=== PATIENT | male | born 1985 | race Caucasian/White ===

== ENCOUNTER 2022-01-16 14:39 | Emergency (ER) | payer BC, SELFPAY ==
[2022-01-16 14:54] VITALS: BP 153/96; PULSE 107; RESP 16; TEMP 37.3; O2SAT 99
--- NOTE | 2022-01-16 14:57 | ED.URI ---
HPI - URI/Sore Throat General Chief Complaint: Upper Respiratory Infection Stated Complaint: Coughing, Fever Time Seen by Provider: 01/16/22 14:57 Source: patient and RN notes reviewed Mode of arrival: ambulatory Limitations: no limitations History of Present Illness HPI Narrative: 37-year-old male presented for complaint of cough, dizziness, nausea and sweats/chills for 3 days. He endorses a cough is productive of mucus sometimes. He has had 1 or 2 episodes of vomiting. Patient also endorses left lower rib pain for over 1 week. Yesterday he tested negative for COVID at home. He has been taking sinus and cough medications. No sick contacts. MD elicited complaint: cough Related Data Home Medications Medication Instructions Recorded Confirmed No Home Medications 01/16/22 01/16/22 Allergies Allergy/AdvReac Type Severity Reaction Status Date / Time No Known Allergies Allergy Verified 01/16/22 14:58 Review of Systems Review of Systems: CONSTITUTIONAL: Endorses malaise, chills, sweats, fever EYES: Denies visual changes, redness, or discharge ENT: Reports rhinorrhea, congestion, denies, otalgia, sore throat CARDIOVASCULAR: Denies chest pain, palpitations, edema RESPIRATORY: Reports cough, Denies dyspnea GASTROINTESTINAL: Denies abdominal pain, nausea, vomiting, diarrhea SKIN: Denies rash or itching MUSCULOSKELETAL: reports rib pain Exam Narrative: GENERAL: Ill-appearing, nontoxic EYES: conjunctivae clear ENT: Mucous membranes moist. TM pearly carrasco with dull light reflex bilaterally; no tragal tenderness. Oropharynx erythematous without lesions or exudate, no drooling, no hoarseness, no trismus, uvula midline. NECK: Supple. No lymphadenopathy CHEST: Clear to auscultation, breath sounds equal. HEART: Regular rate and rhythm. No murmur heard. SKIN: Warm, dry, no rash. MUSC: Left lower ribs tender with palpation; no bruising or lesions NEURO: Alert and oriented x3. PSYCH: Normal mood and affect Course Course Emergency Course: Patient is aware of diagnosis, understands and agrees to treatment plan. Anticipatory guidance given. Patient agrees to follow-up as directed and is aware of reasons to seek care at the emergency department. Portions of this record may have been created with voice recognition software Level of Care: Express Care Visit Vital Signs Vital signs: Vital Signs Temperature 99.2 F 01/16/22 14:54 Pulse Rate 107 H 01/16/22 14:54 Respiratory Rate 16 01/16/22 14:54 Blood Pressure 153/96 H 01/16/22 14:54 Pulse Oximetry 99 01/16/22 14:54 Oxygen Delivery Room Air 01/16/22 14:54 Temperature 99.2 F 01/16/22 14:54 Pulse Rate 107 H 01/16/22 14:54 Respiratory Rate 16 01/16/22 14:54 Blood Pressure 153/96 H 01/16/22 14:54 Pulse Oximetry 99 01/16/22 14:54 Oxygen Delivery Room Air 01/16/22 14:54 reviewed MDM - URI/Sore Throat MDM Narrative Medical decision making narrative: flu A positive Advised supportive measures and signs/symptoms to go to the ER. Pt is appropriate for outpt treatment and f/u. Differential Diagnosis Differential diagnosis: Likely upper respiratory infection, sinusitis and viral infection Discharge Plan Discharge Clinical Impression: Influenza, Rib pain on left side Patient Disposition: Home, Self-Care Condition: Stable Additional Instructions: Infulenza positive You should avoid crowds until you are fever free for 24 hours without the use of fever reducing medications, or the symptoms are improved Rest. Drink plenty of fluids. Tylenol 1000mg every 8 hours and Motrin 600mg every 8 hours as needed for pain/fever Zyrtec (or Claritin/Ling) for sinus pressure/congestion over the counter Cough syrup may cause drowsiness; avoid driving or take it at night time. Follow up with your primary care provider as needed in 1-2 weeks Go to the ER for worsening symptoms or concerns Prescriptions: No Action No Home Medication
== END 2022-01-16 16:30 | disposition home or self-care (01) ==
PROVIDERS: Emergency Provider Nurse Practitioner Family
DX: J10.1 Influenza due to other identified influenza virus with other respiratory manifestations (principal); R07.81 Pleurodynia; Z20.822 Contact with and (suspected) exposure to COVID-19
CPT/HCPCS: 87426; 87804; 99213; C9803; G0463

== ENCOUNTER 2022-03-25 00:48 | Emergency (ER) | payer BC, SELFPAY ==
[2022-03-25 00:55] VITALS: BP 138/85; PULSE 99; RESP 16; O2SAT 93
[2022-03-25 01:10] LABS: Basophils Absolute Auto 0.1 K/mm3 (0.0-0.1); Eosinophils Percent Auto 0.4 % (0-4.4); Hematocrit 43.5 % (42.0-52.0); Hemoglobin 14.9 g/dL (14.0-18.0); Immature Granulocyte Absolute 0.02 K/mm3 (0.00-0.031); Immature Granulocyte Percent A 0.3 % (0-0.5); Lymphocytes Absolute Auto 3.55 K/mm3 (0.9-3.2); Lymphocytes Percent Auto 51.2 % (18.3-44.2); Mean Corpuscular HGB Conc 34.3 g/dl (32-36); Mean Corpuscular Hemoglobin 29.3 pg (26-34); Mean Corpuscular Volume 85.6 fl (80-100); Mean Platelet Volume 9.8 fl (7.4-10.4); Monocytes Absolute Auto 0.6 K/mm3 (0.1-0.6); Monocytes Percent Auto 8.2 % (2.6-8.5); Neutrophils Absolute Auto 2.7 K/mm3 (1.3-6.7); Neutrophils Percent Auto 38.9 % (45.5-73.1); Platelet Count Result 332 k/mm3 (150-375); Red Blood Count 5.08 M/mm3 (4.6-6.20); Red Cell Distribution Width 12.7 % (11.5-14.5); White Blood Count 6.9 K/mm3 (4.5-10.0)
--- NOTE | 2022-03-25 01:20 | ED.PSYCH ---
HPI - Psych General Chief Complaint: Psychiatric Symptoms <JOE Rose Last Filed: 03/25/22 03:50> Stated Complaint: DEPRESSION, SI <JOE Rose Last Filed: 03/25/22 03:50> Time Seen by Provider: 03/25/22 00:51 <JOE Rose Last Filed: 03/25/22 03:50> Source: patient <JOE Rose Last Filed: 03/25/22 03:50> Mode of arrival: ambulatory <JOE Rose Last Filed: 03/25/22 03:50> Limitations: no limitations <JOE Rose Last Filed: 03/25/22 03:50> History of Present Illness HPI Narrative: Patient is a 37-year-old male who presents to the ED via EMS with report of depression and SI. Patient reports a history of self diagnosed depression. He has never been on medication for depression or anxiety. He states everything came to a head tonight and he felt like he could not take it anymore. He was texting his friends and apparently made suicidal gestures. By the time patient arrived home, police were waiting to bring him to the hospital. Patient reports a previous suicide attempt 8 to 9 months ago by hanging. He states he plan to either overdose, hang himself, or shoot himself tonight. He does have access to guns. He denies any HI or AVH. Denies any chest pain or difficulty breathing, fever, recent cough or cold symptoms. Patient admits to drinking 6-7 alcoholic mixed drinks tonight. Denies any drug use. <JOE Rose Last Filed: 03/25/22 03:50> Related Data Home Medications: Home Medications Medication Instructions Recorded Confirmed No Home Medications 01/16/22 01/16/22 <JOE Rose Last Filed: 03/25/22 03:50> Allergies/Adverse Reactions: Allergies Allergy/AdvReac Type Severity Reaction Status Date / Time No Known Allergies Allergy Verified 01/16/22 14:58 <Leta Wise PA-C - Last Filed: 03/25/22 03:50> Review of Systems Review of Systems: CONSTITUTIONAL: Denies fever, chills, or sweats. EYES: Denies visual changes. ENT: Denies rhinorrhea, congestion, sore throat. CARDIOVASCULAR: Denies chest pain, palpitations, or edema. RESPIRATORY: Denies cough or dyspnea. GASTROINTESTINAL: Denies abdominal pain, nausea, vomiting, or diarrhea. PSYCHIATRIC: Reports SI, depression. Denies HI, AVH. <Leta Wise PA-C - Last Filed: 03/25/22 03:50> All systems reviewed & are unremarkable except as noted in HPI and below <Leta Wise PA-C - Last Filed: 03/25/22 03:50> [facility] Past Medical History Medical History: Medical History (Updated 03/25/22 @ 03:50 by Leta Wise PA-C) No pertinent past medical history <Leta Wise PA-C - Last Filed: 03/25/22 03:50> Surgical History Surgical History: Surgical History (Updated 03/25/22 @ 01:24 by Leta Wise PA-C) History of neck surgery History of shoulder surgery <Leta Wise PA-C - Last Filed: 03/25/22 03:50> Social History Social History: Social History (Updated 03/25/22 @ 01:24 by Leta Wise PA-C) Smoking status: Never smoker Alcohol intake: current Substance use: never Substance use type: does not use <Leta Wise PA-C - Last Filed: 03/25/22 03:50> Exam Narrative: GENERAL: Well appearing, obese, non-toxic, in no acute distress. HEAD: Normocephalic, atraumatic. NECK: Supple. No adenopathy, no masses. RESPIRATORY: Airway patent, respirations nonlabored. Clear to auscultation bilaterally, no rales, rhonchi, wheezing. CARDIOVASCULAR: Regular rate and rhythm without murmurs, rubs, or gallops. Peripheral pulses 2+ and equal bilaterally. ABDOMINAL: Soft, nontender, nondistended, no hepatosplenomegaly. Normoactive BS. MUSCULOSKELETAL: Moves all extremities. Strength/ROM intact without gross deformities. SKIN: Warm, dry, normal color. No rashes. NEURO: A&O X3. Speech clear. Cranial n
[2022-03-25 01:23] LABS: Ethanol 179 mg/dL (<10)
[2022-03-25 01:24] LABS: Alanine Aminotransferase 38 U/L (6-50); Albumin Level 4.9 g/dL (3.5-5.1); Alkaline Phosphatase 77 U/L (38-126); Anion Gap 11 mmol/L (8-16); Aspartate Amino Transferase 40 U/L (17-59); Bilirubin,Total 0.3 mg/dL (0.2-1.3); Blood Urea Nitrogen 8 mg/dL (9-20); Calcium 8.7 mg/dL (8.4-10.2); Carbon Dioxide 24 mmol/L (22-30); Chloride 107 mmol/L (98-107); Estimated CRCL calculation 133 ml/min; Estimated Glomerular Filt Rate > 60; Glucose 132 mg/dL (65-110); Potassium 3.7 mmol/L (3.4-5.0); Sodium 142 mmol/L (137-145)
[2022-03-25 01:54] LABS: Thyroid Stimulating Hormone 0.605 uIU/mL (0.465-4.680)
[2022-03-25 01:55] VITALS: BP 118/72; PULSE 78; RESP 14; O2SAT 99
[2022-03-25 02:46] LABS: Add Urine Microscopic? NO; Appearance Urine Clear (Clear); Bilirubin Urine Negative (Negative); Blood Urine Negative (Negative); Color Urine Light Yellow (Yellow); Glucose Urine UA Negative (Negative); Ketones Urine Negative (Negative); Leukocyte Esterase Ur Negative LEU/UL (Negative); Nitrate Urine Negative (Negative); Protein Urine Negative (Negative); Specific Grav Ur 1.025 (1.001-1.035); Urobilinogen Urine 0.2 mg/dL (<2.0); pH Urine 5.5 (5.0-9.0)
[2022-03-25 02:51] LABS: Mucus Urine Rare /lpf; WBC Urine 0-3 /hpf
[2022-03-25 03:03] LABS: Amphetamine Screen Urine Negative (Negative); Barbiturate Screen Urine Negative (Negative); Benzodiazepines Screen Urine Negative (Negative); Cannabinoid Screen Urine Negative (Negative); Cocaine Screen Urine Negative (Negative); Methadone Screen Urine Negative (Negative); Opiate Screen Urine Negative (Negative); Phencyclidine Screen Urine Negative (Negative)
[2022-03-25 04:07] LABS: Acetaminophen < 10 ug/mL (10-30); Salicylate < 1.0 mg/dL (2-20)
[2022-03-25 04:42] LABS: Influenza A QL RT-PCR Negative (Negative); Influenza B QL RT-PCR Negative (Negative); SARS-CoV-2 RNA PCR Negative
[2022-03-25 06:00] LABS: Ethanol 84 mg/dL (<10)
--- NOTE | 2022-03-25 07:12 | PC.NURSE ---
Report given to RAS Guerra.
[2022-03-25 08:02] VITALS: BP 125/74; PULSE 64; RESP 18; O2SAT 96
--- NOTE | 2022-03-25 08:20 | PC.NURSE ---
Fern Odonnell ([facility]) called for patient update. Patient verbalized to this RN it was ok to share information.
== END 2022-03-25 09:11 | disposition home or self-care (01) ==
PROVIDERS: Physician Assistant; Emergency Provider Emergency Medicine
DX: F32.A Depression, unspecified (principal); R45.851 Suicidal ideations; Z20.822 Contact with and (suspected) exposure to COVID-19
CPT/HCPCS: 36415; 80053; 80307; 81003; 84443; 85025; 87636; 99284

== ENCOUNTER 2022-08-19 08:38 | Observation (INO) | payer BC, SELFPAY ==
--- NOTE | ~2022-08-19 | CT_ITS ---
EXAMINATION: CT abdomen pelvis wo con DATE: 08/19/2022 10:13 INDICATION: Left flank pain. TECHNIQUE: Computed tomography (CT) of the abdomen and pelvis was performed without intravenous contr ast. Automated exposure control and iterative reconstruction technique were employed. The dose-length product was 616.74 mGy-cm. COMPARISON: None. FINDINGS: The visualized portions of the lung bases demonstrate mild atelectasis. There is a 9 mm nod ule in right lower lobe. There are 3 mm and 4 mm nodules in right middle lobe. No pleural effusion. T he heart size is normal. No pericardial effusion. The liver, gallbladder, spleen, pancreas, adrenal g lands, and right kidney are normal. There are 3 stones in left kidney measuring up to 2 mm. There is mild left hydronephrosis. There is a 6 mm stone in proximal left ureter. There are no dilated loops o f bowel. The appendix is normal. There is an umbilical hernia containing fat. There are no pathologic ally enlarged lymph nodes. There is no free intraperitoneal fluid. There is mild lumbar spondylosis. IMPRESSION: 1. 6 mm stone in proximal left ureter with mild left hydronephrosis. 2. Small nonobstructing left kidney stones. 3. Umbilical hernia containing fat. 4. 9 mm pulmonary nodule, which may be granulomatous disease or primary bronchogenic carcinoma. Consi chelsey PET/CT or 3 month noncontrast low-dose chest CT. Reviewed, dictated and finalized at location A. IMPRESSION: 1. 6 mm stone in proximal left ureter with mild left hydronephrosis. 2. Small nonobstructing left kidney stones. 3. Umbilical hernia containing fat. 4. 9 mm pulmonary nodule, which may be granulomatous disease or primary broncho genic carcinoma. Consider PET/CT or 3 month noncontrast low-dose chest CT.
--- NOTE | ~2022-08-19 | XR_ITS ---
XR abdomen/kub 1V 08/20/2022 08:03 Indication: Left ureteral stent Procedure: KUB Comparison: CT dated 08/19/2022 Findings: There is a left ureteral stone at the L3 level. Bowel pattern nonobstructive. No acute osse ous abnormality. Impression: 1: Proximal left ureteral stone at the L3 level. Reviewed, dictated and finalized at location L. Impression: 1: Proximal left ureteral stone at the L3 level.
--- NOTE | ~2022-08-19 | XR_ITS ---
EXAMINATION: XR retrograde pyelo w/stent LT DATE: 08/20/2022 13:29 INDICATION: Left internal ureteral stent placement TECHNIQUE: Fluoroscopic images from a left internal ureteral stent placement are submitted for review . 14 seconds of fluoroscopy time. FINDINGS: There is a left double-J internal ureteral stent projecting in expected position, with proximal [place] loop at the level of the renal pelvis and distal loop in the pelvis within the bladder lumen. IMPRESSION: 1. Left internal ureteral stent placement. Please refer to real-time procedural findings for detail s. Reviewed, dictated and finalized at location L. IMPRESSION: 1. Left internal ureteral stent placement. Please refer to real-time procedur al findings for details.
[2022-08-19 08:41] VITALS: BP 134/91; PULSE 68; RESP 18; TEMP 37; O2SAT 99
[2022-08-19 08:56] LABS: Basophils Absolute Auto 0.1 K/mm3 (0.0-0.1); Basophils Percent Auto 0.9 % (0.2-1.2); Eosinophils Absolute Auto 0.3 K/mm3 (0-0.3); Hematocrit 43.8 % (42.0-52.0); Hemoglobin 14.6 g/dL (14.0-18.0); Immature Granulocyte Absolute 0.09 K/mm3 (0.00-0.031); Lymphocytes Absolute Auto 4.62 K/mm3 (0.9-3.2); Lymphocytes Percent Auto 49.5 % (18.3-44.2); Mean Corpuscular HGB Conc 33.3 g/dl (32-36); Mean Corpuscular Volume 86.9 fl (80-100); Monocytes Absolute Auto 1.4 K/mm3 (0.1-0.6); Neutrophils Absolute Auto 2.9 K/mm3 (1.3-6.7); Neutrophils Percent Auto 30.6 % (45.5-73.1); Platelet Count Result 320 k/mm3 (150-375); Red Blood Count 5.04 M/mm3 (4.6-6.20); Red Cell Distribution Width 13.1 % (11.5-14.5); White Blood Count 9.3 K/mm3 (4.5-10.0)
[2022-08-19] MEDS: HYDROmorphone HCL INJ (*CRX) 1 MG/ML SYR IV PUSH ×4 (09:00→21:33)
[2022-08-19] MEDS: ONDANSETRON INJ 4 MG/2 ML VIAL IV PUSH (09:00)
[2022-08-19 09:06] LABS: Alanine Aminotransferase 30 U/L (6-50); Albumin Level 4.2 g/dL (3.5-5.1); Alkaline Phosphatase 76 U/L (38-126); Anion Gap 10 mmol/L (8-16); Aspartate Amino Transferase 32 U/L (17-59); Bilirubin,Total 0.3 mg/dL (0.2-1.3); Blood Urea Nitrogen 12 mg/dL (9-20); Calcium 8.6 mg/dL (8.4-10.2); Carbon Dioxide 23 mmol/L (22-30); Chloride 110 mmol/L (98-107); Estimated CRCL calculation 133 ml/min; Estimated Glomerular Filt Rate > 60; Glucose 115 mg/dL (65-110); Potassium 4.2 mmol/L (3.4-5.0); Sodium 143 mmol/L (137-145)
--- NOTE | 2022-08-19 09:06 | ED.GENADULT ---
HPI - General Adult General Chief complaint: Back Pain/Injury Stated complaint: L flank pain Time Seen by Provider: 08/19/22 08:40 History of Present Illness HPI narrative: 37-year-old male presenting to the emergency department for evaluation of left flank pain that awoke him this morning. Patient states that the pain starts in his left flank radiates to his left lower quadrant and does radiate to his testicles. Patient denies any prior issues with his kidneys, urinary tract infections and denies any prior history of kidney stones. Patient did have some associated nausea and vomiting. Patient denies any falls or injuries. Patient denies any associated chest pain or shortness of breath. Patient denies any fevers. Related Data Home Medications Medication Instructions Recorded Confirmed No Home Medications 08/19/22 08/19/22 Allergies Allergy/AdvReac Type Severity Reaction Status Date / Time No Known Allergies Allergy Verified 08/19/22 09:46 Review of Systems Review of Systems: All systems reviewed & are unremarkable except as noted in HPI and below PMFSH Surgical History Surgical History H/O neck surgery H/O shoulder surgery Family History Family History Father Kidney stone Other Hypertension Social History Social History (Updated 08/19/22 @ 12:41 by Zofia Hernandez NP) Social History: the patient lives with his significant other. He has at least 1 daughter. He is a lifelong nonsmoker. Code status full code Smoking status: Never smoker Alcohol intake: current Drinks per week: 8 Substance use: never Lack of Transportation: No Lack of Food: Never True Current Housing: I Have Housing Concerned About Future Housing: No Difficulty Paying Gas/Electric Bills: No Difficulty Paying for Meds: No Currently Unemployed: No Education: Associate Degree Difficulty w/ Childcare or Family Care: No Spiritual care concerns: No Exam Narrative: APPEARANCE: Well appearing, no pain, no distress, well-nourished. HEAD: normocephalic, atraumatic. EYES: PERRLA/EOMI, conjunctivae clear. NOSE: Normal no drainage NECK: Supple. No adenopathy, no masses. RESPIRATORY: Airway patent, respirations nonlabored. Clear to auscultation bilaterally, no rales, rhonchi, wheezing. CARDIOVASCULAR: Regular rate and rhythm without murmurs rubs or gallops. ABDOMINAL: Soft, left CVA tenderness to palpation. Left lower quadrant tenderness to palpation MUSCULOSKELETAL: Moves all extremities. Strength/ROM intact, No edema, No calf tenderness. NEURO: Alert. Cranial nerves II through XII intact. Grossly intact SKIN: Warm, dry. Normal Color Course Course Emergency Course: 37-year-old male with left flank pain concerning for ureteral calculi. Patient was ordered IV Dilaudid and IV Zofran for pain and nausea control. Patient is afebrile with no leukocytosis. Patient's creatinine is within normal limits. Patient does have a 6 mm left ureteral calculi. Patient's pain was difficult to control in the emergency department. I discussed the possibility of discharge to home versus admission for further pain control and patient and family prefer to be admitted. I discussed the case with urology and they will see the patient as consult. Discussed case with hospitalist and patient was accepted for admission. Patient was stable at time of transfer to the floor. Vital Signs Vital signs: Vital Signs Temperature 98.6 F 08/19/22 08:41 Pulse Rate 68 08/19/22 08:41 Respiratory Rate 18 08/19/22 08:41 Blood Pressure 134/91 H 08/19/22 08:41 Pulse Oximetry 99 08/19/22 08:41 Temperature 97.4 F L 08/19/22 13:32 Pulse Rate 67 08/19/22 13:32 Respiratory Rate 18 08/19/22 13:32 Blood Pressure 151/78 H 08/19/22 13:32 Pulse Oximetry 98 08/19/22 13:32 Oxygen Delivery Room Air
[2022-08-19] MEDS: SODIUM CHLORIDE 0.9% IV 1,000 ML 999 ML IV CONT (09:23)
[2022-08-19 10:58] LABS: Appearance Urine Clear (Clear); Bacteria Urine None Seen /hpf; Bilirubin Urine Negative (Negative); Blood Urine 3+ (Negative); Color Urine Yellow (Yellow); Glucose Urine UA Negative (Negative); Ketones Urine Negative (Negative); Leukocyte Esterase Ur 1+ LEU/UL (Negative); Nitrate Urine Negative (Negative); Non Pathogenic Casts 0-2; Protein Urine 1+ mg/dL (Negative); RBC Urine 51-100 /hpf (0-2); Specific Grav Ur 1.023 (1.001-1.035); Squamous Epithelial Cell Urine None seen /hpf (Few); pH Urine 5.5 (5.0-9.0)
[2022-08-19 11:03] LABS: Add Urine Microscopic? YES
[2022-08-19] MEDS: SODIUM CHLORIDE 0.9% IV 1,000 ML 100 ML IV CONT ×2 (11:37→21:31)
[2022-08-19 12:10] VITALS: BP 140/75; PULSE 79; RESP 16; O2SAT 95
--- NOTE | 2022-08-19 12:19 | PM.IMHP ---
H&P: HPI History of Present Illness Date/Time: 08/19/22 12:19 Chief Complaint: Left flank pain Narrative: this is a 37-year-old male patient has no past medical history. The patient stated that his father has kidney stones but he has never had kidney stones. The patient woke up this morning with left flank pain that radiates to his lower quadrant and Friday testicles. The patient has no burning sensation when he urinates. He denies any shortness of breath. He denies any fevers. He has no elevated white count. He leukocyte esterase 1+ wbc's 11-20. CT of the abdomen was read as. 6 mm stone in proximal left ureter with mild left hydronephrosis. 2. Small nonobstructing left kidney stones. 3. Umbilical hernia containing fat. 4. 9 mm pulmonary nodule, which may be granulomatous disease or primary bronchogenic carcinoma. Consider PET/CT or 3 month noncontrast low-dose chest CT. he was given Zofran, Dilaudid and IV fluids. The patient is being admitted to observation status on the date of service of 08/19/2022. Review of Systems Review of Systems: All systems reviewed & are unremarkable except as noted in HPI and below Constitutional: Constitutional: Reports as per HPI and Reports no additional constitutional complaints Eyes: Eyes: Reports as per HPI and Reports no additional eye complaints ENT: Reports system reviewed and no additional complaints, except as documented and Reports Normal hearing present Cardiovascular: Cardiovascular: Reports no additional cardiovascular complaints Respiratory: Respiratory: Reports no additional respiratory complaints and Reports no additional respiratory complaints Gastrointestinal: Gastrointestinal: Reports as per HPI and Reports no additional gastrointestinal complaints Musculoskeletal: Musculoskeletal: Reports no additional musculoskeletal complaints Integumentary/Breasts: Skin/Breast: Reports system reviewed and no additional complaints, except as docu and Reports as per HPI Neurologic: Reports system reviewed and no additional complaints, except as documented, Reports as per HPI and Reports Normal hearing present Psychiatric: Psychiatric: Reports no additional psychiatric complaints and Reports as per HPI Endocrine: Endocrine: Reports no additional endocrine complaints Hematologic/Lymphatic: Hematologic/Lymphatic: Reports no additional hematologic/lymphatic complaints Allergic/Immunologic: Allergic/Immunologic: Reports no additional allergic/immunologic complaints [facility] Surgical History Surgical History H/O neck surgery H/O shoulder surgery Family History Family History (Updated 08/19/22 @ 12:41 by Zofia Hernandez NP) Father Kidney stone Other Hypertension Social History Social History (Updated 08/19/22 @ 12:41 by Zofia Hernandez NP) Social History: the patient lives with his significant other. He has at least 1 daughter. He is a lifelong nonsmoker. Code status full code Smoking status: Never smoker Meds Home Medications and Allergies Home Medications Medication Instructions Recorded Confirmed Type No Home Medications 08/19/22 08/19/22 History Allergies Allergy/AdvReac Type Severity Reaction Status Date / Time No Known Allergies Allergy Verified 08/19/22 09:46 Vital Signs Vital Signs - 24 hr 08/19/22 08:41 08/19/22 12:10 Temperature 37.0 C Pulse Rate 68 79 Respiratory Rate 18 16 Blood Pressure 134/91 H 140/75 Pulse Oximetry 99 95 Exam Const: General: cooperative, healthy appearing, comfortable, no acute distress, well developed, alert, awake, Physically active, average body habitus and well nourished Nutritional Appearance: average body habitus and well nourished Orientation/consciousness: oriented to person, oriented to place, oriented to time and patient oriented x3 Limitations: no limitations HENMT: Head: normal to inspection, No palpable skull fract
--- NOTE | 2022-08-19 12:28 | WPDURCON ---
Assessment and Plan Assessment and plan (1) Calculus of left ureter: Code(s): N20.1 - Calculus of ureter Status: Acute (2) Hydronephrosis: Qualifiers: Hydronephrosis type: with renal calculous obstruction Qualified Code(s): N13.2 - Hydronephrosis with renal and ureteral calculous obstruction Code(s): N13.30 - Unspecified hydronephrosis Status: Acute Plan he has a proximal ureteral stone. His pain has been hard to control. He will be admitted overnight. We will let him have a trial of conservative stone passage overnight. Will plan on intervention tomorrow if he does not stone. Plan on ureteroscopy with stone extraction and stent placement. He understands risks of bleeding, infection, damage to the urinary tract, inability remove the stone. Will strain his urine. Will get a KUB. Urology Consult Note HPI Date Seen: 08/19/22 Requesting Physician: Zofia Hernandez Primary Care Provider: HUMAN INTELLIGENCE PHYSICIAN Consult Narrative Narrative: Daniel Odonnell Iii is a 37 year old male Prior history of kidney stones. He presented the emergency room this morning with acute onset left flank pain. He denies visible blood in the urine. He does endorse nausea. There is no dysuria or symptoms urinary tract infection. A CT scan shows a 6 mm proximal left ureteral stone with mild hydronephrosis. There is a nonobstructing stone in his left kidney as well. They found it hard to control his pain in the emergency room. He is being admitted for further management. Review of Systems Review of Systems: All systems reviewed & are unremarkable except as noted in HPI and below PMFSH Surgical History Surgical History H/O neck surgery H/O shoulder surgery Family History Family History Other Hypertension Social History Social History Smoking status: Never smoker Meds Home Medications and Allergies Home Medications Medication Instructions Recorded Confirmed Type No Home Medications 08/19/22 08/19/22 History Allergies Allergy/AdvReac Type Severity Reaction Status Date / Time No Known Allergies Allergy Verified 08/19/22 09:46 Vital Signs Vital Signs - 24 hr 08/19/22 08:41 08/19/22 12:10 Temperature 98.6 F Pulse Rate 68 79 Respiratory Rate 18 16 Blood Pressure 134/91 H 140/75 Pulse Oximetry 99 95 Exam Const: General: cooperative and healthy appearing; No comfortable or combative Orientation/consciousness: patient oriented x3 Limitations: no limitations HENMT: Head: normal to inspection Eyes: General: appearance normal, both eyes and all related structures Neck: Neck: normal visual inspection and full ROM Resp: Effort & Inspection: normal respiratory effort, able to speak in complete sentences and not labored GI: Inspection: normal to inspection Back/Spine/Pelvis: Back: CVA tenderness Skin: General skin exam: normal color, no rashes or lesions noted and elasticity normal Neuro: General: oriented to person, oriented to place, oriented to time, patient oriented x3, tone normal and moves all extremities Extrem: General: normal to inspection and full ROM Psych: Appearance: grossly normal and well kempt Results Labs 08/19/22 08:48 08/19/22 08:48 Labs: Short CBC 08/19/22 Range/Units 08:48 WBC 9.3 (4.5-10.0) K/mm3 Hgb 14.6 (14.0-18.0) g/dL Hct 43.8 (42.0-52.0) % Plt Count 320 (150-375) k/mm3 BMP 08/19/22 08:48 Sodium 143 Potassium 4.2 Chloride 110 H Carbon Dioxide 23 BUN 12 Creatinine 0.70 Glucose 115 H Calcium 8.6 Liver Function 08/19/22 Range/Units 08:48 Total Bilirubin 0.3 (0.2-1.3) mg/dL AST 32 (17-59) U/L ALT 30 (6-50) U/L Alkaline Phosphatase 76 (38-126) U/L Albumin 4.2 (3.5-5.1)
[2022-08-19 13:15] VITALS: BP 129/78; PULSE 79; RESP 16; O2SAT 99
[2022-08-19 13:32] VITALS: BP 151/78; PULSE 67; RESP 18; TEMP 36.3; O2SAT 98
[2022-08-19] MEDS: HYDROmorphone HCL INJ (*CRX) 1 MG/ML SYR 0.5 MG IV PUSH ×2 (13:33→17:41)
[2022-08-19 13:35] VITALS: BMI 30.4
--- NOTE | 2022-08-19 13:37 | ADMGEN ---
This patient, Daniel Odonnell Iii, was admitted to [facility] Surg Room 329-01. Patient/family oriented to hospital policies and general routines including ID bracelet, bed and alarms, visiting hours, pain management, procedures, bathroom and other care routines, personal items, smoking policy, room service/diet, and visiting hours. Information on how to activate the Rapid Response Team has been discussed. Patient/Family are encouraged to report perceived risks to care and to ask questions if they do not understand what they are told or what they should do.
[2022-08-19 21:40] VITALS: BP 129/71; PULSE 85; RESP 16; TEMP 36.7; O2SAT 97
[2022-08-20] VITALS (7 sets, daily range): BP systolic 98–146; BP diastolic 48–86; PULSE 59–77; RESP 15–18; TEMP 35.6–37.7; O2SAT 93–100
[2022-08-20] MEDS: HYDROmorphone HCL INJ (*CRX) 1 MG/ML SYR IV PUSH ×3 (01:57→14:43)
[2022-08-20 06:19] LABS: Basophils Absolute Auto 0.1 K/mm3 (0.0-0.1); Basophils Percent Auto 0.6 % (0.2-1.2); Eosinophils Absolute Auto 0.2 K/mm3 (0-0.3); Eosinophils Percent Auto 2.2 % (0-4.4); Hematocrit 40.8 % (42.0-52.0); Hemoglobin 13.2 g/dL (14.0-18.0); Immature Granulocyte Absolute 0.03 K/mm3 (0.00-0.031); Immature Granulocyte Percent A 0.3 % (0-0.5); Lymphocytes Absolute Auto 3.39 K/mm3 (0.9-3.2); Lymphocytes Percent Auto 34.8 % (18.3-44.2); Mean Corpuscular HGB Conc 32.4 g/dl (32-36); Mean Corpuscular Hemoglobin 28.6 pg (26-34); Mean Corpuscular Volume 88.3 fl (80-100); Mean Platelet Volume 10.5 fl (7.4-10.4); Monocytes Absolute Auto 1.2 K/mm3 (0.1-0.6); Monocytes Percent Auto 12.4 % (2.6-8.5); Neutrophils Absolute Auto 4.8 K/mm3 (1.3-6.7); Neutrophils Percent Auto 49.7 % (45.5-73.1); Platelet Count Result 239 k/mm3 (150-375); Red Blood Count 4.62 M/mm3 (4.6-6.20); Red Cell Distribution Width 12.9 % (11.5-14.5); White Blood Count 9.7 K/mm3 (4.5-10.0)
[2022-08-20 06:31] LABS: Lactic Acid Reflex 1.4 mmol/L (0.7-2.0)
[2022-08-20 06:33] LABS: Alanine Aminotransferase 23 U/L (6-50); Albumin Level 3.4 g/dL (3.5-5.1); Alkaline Phosphatase 60 U/L (38-126); Anion Gap 5 mmol/L (8-16); Aspartate Amino Transferase 29 U/L (17-59); Bilirubin,Total 0.8 mg/dL (0.2-1.3); Blood Urea Nitrogen 12 mg/dL (9-20); Calcium 8.5 mg/dL (8.4-10.2); Carbon Dioxide 26 mmol/L (22-30); Chloride 106 mmol/L (98-107); Estimated CRCL calculation 118 ml/min; Estimated Glomerular Filt Rate > 60; Glucose 89 mg/dL (65-110); Potassium 3.8 mmol/L (3.4-5.0); Sodium 137 mmol/L (137-145)
[2022-08-20] MEDS: SODIUM CHLORIDE 0.9% IV 1,000 ML 100 ML IV CONT (06:52)
--- NOTE | 2022-08-20 11:53 | WPDUROPN2 ---
Progress Note: A&P Assessment and Plan (1) Renal stones: Code(s): N20.0 - Calculus of kidney Status: Acute Assessment and Plan: No intervention at this time. (2) Calculus of left ureter: Code(s): N20.1 - Calculus of ureter Status: Acute Assessment and Plan: Plan to go to the OR today with Dr. Alan: Cystoscopy, left ureteroscopy with stent placement, left retrograde pyelogram, possible stone removal, possible holmium laser. Keep NPO. If stone is not removed, patient will likely have a left ESWL in 1-2 weeks once urine culture is resulted and no infection is noted. Subjective Subjective Date/Time Seen: 08/20/22 11:53 Patient continues to have left flank pain secondary to left UPJ stone that measures 6mm with hydronephrosis present. Urine culture is pending, KUB is positive for stone. Creatinine 0.80, WBC is 9.7 and he is afebrile. Review of Systems Cardiovascular: Cardiovascular: Denies chest pain Respiratory: Respiratory: Reports no additional respiratory complaints Gastrointestinal: Gastrointestinal: Denies abdominal pain Genitourinary: Genitourinary: Denies hematuria, Denies dysuria, Reports flank pain, Denies urinary frequency, Denies urinary hesitancy and Denies urinary urgency Exam Const: General: comfortable Resp: Effort & Inspection: normal respiratory effort Cardio: Rate: regular rate GI: GI Palp: Yes Soft to palpation and Yes Tenderness to palpation present (GI) (LLQ) Extrem: Right lower extremity: no edema Left lower extremity: no edema Objective Data Vital Signs Vital Signs: Vital Signs - 24 hr 08/19/22 12:10 08/19/22 13:32 08/19/22 13:46 Temperature 97.4 F L Pulse Rate 79 67 Respiratory Rate 16 18 Blood Pressure 140/75 151/78 H Pulse Oximetry 95 98 Oxygen Delivery Room Air 08/19/22 13:15 08/19/22 21:40 08/19/22 20:00 Temperature 98.1 F Pulse Rate 79 85 Respiratory Rate 16 16 Blood Pressure 129/78 129/71 Pulse Oximetry 99 97 Oxygen Delivery Room Air 08/20/22 05:56 08/20/22 08:00 Temperature 97.3 F L Pulse Rate 77 Respiratory Rate 15 Blood Pressure 98/48 L Pulse Oximetry 93 Oxygen Delivery Room Air Intake/Output Intake/Output: Intake & Output 08/17/22 08/18/22 08/19/22 08/20/22 23:59 23:59 23:59 23:59 Intake Total 2960 1000 Output Total 0 Balance 2960 1000 Meds/Results Medications: Active Medications Generic Name Dose Route Start Last Admin Trade Name Freq PRN Reason Stop Dose Admin Hydromorphone HCl 1 mg 08/19/22 18:13 08/20/22 06:16 Hydromorphone Hcl Inj (*Crx) 1 Mg/Ml Syr IV PUSH 1 mg Q3H PRN Administration Pain Rated 7-10 Sodium Chloride 1,000 mls @ 100 mls/hr 08/19/22 11:30 08/20/22 06:52 Normal Saline Iv IV CONT 100 mls/hr .Q10H JALEN Administration Ondansetron HCl 4 mg 08/19/22 11:26 Ondansetron Inj 4 Mg/2 Ml Vial IV PUSH Q4H PRN Nausea Radiology Results: ITS Impressions Abdomen/Pelvis CT 08/19/22 10:14 IMPRESSION: 1. 6 mm stone in proximal left ureter with mild left hydronephrosis. 2. Small nonobstructing left kidney stones. 3. Umbilical hernia containing fat. 4. 9 mm pulmonary nodule, which may be granulomatous disease or primary bronchogenic carcinoma. Consider PET/CT or 3 month noncontrast low-dose chest CT. Abdomen X-Ray 08/20/22 08:08 Impression: 1: Proximal left ureteral stone at the L3 level. Labs Labs: Laboratory Results - last 24 hr 08/20/22 05:30 WBC 9.7 RBC 4.62 Hgb 13.2 L Hct 40.8 L MCV 88.3 MCH 28.6 MCHC 32.4 RDW 12.9 Plt Count 239 MPV 10.5 H Immature Gran % (Auto) 0.3 Neut % (Auto) 49.7 Lymph % (Auto) 34.8 [place] % (Auto) 12.4 H Eos % (Auto) 2.2 Baso % (Auto) 0.6 Lymph # (Auto) 3.39 H [place] # (Auto) 1.2 H Eos # (Auto) 0.2 Baso # (Auto) 0.1 Abs Immat Gran (auto) 0.03 Absolute Neuts (auto) 4.8 Absolute Nucleated RBC 0.0 Nucleated RBC % 0.0 S
--- NOTE | 2022-08-20 11:54 | WPDHPUPDATE1 ---
History and Physical Update Update Date/Time: 08/20/22 11:54 History and Physical has been reviewed, including an updated exam of the patient. There are NO changes in the patient's condition. Risks, benefits, and alternatives have been discussed and questions answered. Patient agrees to proceed with procedure. Proceed with cysto left retrograde pyelogram left stent placement possible left ureteroscopy with stone extraction laser.
[2022-08-20] MEDS: LACTATED RINGERS 1,000 ML 30 ML IV CONT (12:00)
--- NOTE | 2022-08-20 12:08 | WPDANESEPPF ---
Anes - Initial Pre Proc Eval Procedure: Operation Date: 08/20/22 12:45 Proposed Procedures p Cystoscopy, Left Ureteroscopy, Left Retrograde Pyelogram, Possible Left Stone Extraction, Possible Left Stent Placement, Possible Holmium Laser - Miguel Alan MD Date/Time: 08/20/22 12:08 Surgeon: Christy Mckenna PA-C Pre Op Diagnosis: UreteralCalculi/Pain Control Patient Data Age: 37 Gender: M Height: 1.7 m Weight: 88 kg Last Vital Signs Temp 36.3 C L 08/20/22 05:56 Pulse 77 08/20/22 05:56 Resp 15 08/20/22 05:56 BP 98/48 L 08/20/22 05:56 Pulse Ox 93 08/20/22 05:56 O2 Del Method Room Air 08/20/22 08:00 Allergies Allergy/AdvReac Type Severity Reaction Status Date / Time No Known Allergies Allergy Verified 08/20/22 07:03 Home Medications Medication Instructions Recorded Confirmed Type No Home Medications 08/19/22 08/19/22 History Laboratory Tests 08/20/22 05:30 WBC 9.7 K/mm3 (4.5-10.0) RBC 4.62 M/mm3 (4.6-6.20) Hgb 13.2 L g/dL (14.0-18.0) Hct 40.8 L % (42.0-52.0) MCV 88.3 fl (80-100) MCH 28.6 pg (26-34) MCHC 32.4 g/dl (32-36) RDW 12.9 % (11.5-14.5) Plt Count 239 k/mm3 (150-375) MPV 10.5 H fl (7.4-10.4) Immature Gran % (Auto) 0.3 % (0-0.5) Neut % (Auto) 49.7 % (45.5-73.1) Lymph % (Auto) 34.8 % (18.3-44.2) [place] % (Auto) 12.4 H % (2.6-8.5) Eos % (Auto) 2.2 % (0-4.4) Baso % (Auto) 0.6 % (0.2-1.2) Lymph # (Auto) 3.39 H K/mm3 (0.9-3.2) [place] # (Auto) 1.2 H K/mm3 (0.1-0.6) Eos # (Auto) 0.2 K/mm3 (0-0.3) Baso # (Auto) 0.1 K/mm3 (0.0-0.1) Abs Immat Gran (auto) 0.03 K/mm3 (0.00-0.031) Absolute Neuts (auto) 4.8 K/mm3 (1.3-6.7) Absolute Nucleated RBC 0.0 K/mm3 (0.0-0.012) Nucleated RBC % 0.0 % (0.0-0.2) Sodium 137 mmol/L (137-145) Potassium 3.8 mmol/L (3.4-5.0) Chloride 106 mmol/L (98-107) Carbon Dioxide 26 mmol/L (22-30) Anion Gap 5 L mmol/L (8-16) BUN 12 mg/dL (9-20) Creatinine 0.80 mg/dL (0.7-1.3) Estim Creat Clear Calc 118 ml/min Estimated GFR > 60 (59 - ) Glucose 89 mg/dL (65-110) Lactic Acid 1.4 mmol/L (0.7-2.0) Calcium 8.5 mg/dL (8.4-10.2) Magnesium 2.0 mg/dL (1.6-2.3) Total Bilirubin 0.8 mg/dL (0.2-1.3) AST 29 U/L (17-59) ALT 23 U/L (6-50) Alkaline Phosphatase 60 U/L (38-126) Total Protein 6.0 L g/dL (6.3-8.2) Albumin 3.4 L g/dL (3.5-5.1) Patient hx anesthesia problems: none Family hx anesthesia problems: none Results Review: All pre-operative results and documents have been reviewed as part of the pre-operative evaluation. [facility] Past Medical History Medical History (Updated 08/20/22 @ 07:03 by Nicole Rodriguez) No pertinent past medical history Surgical History Surgical History H/O neck surgery H/O shoulder surgery Family History Family History (System 08/20/22 @ 07:03 by Nicole Rodriguez) Father Kidney stone Other Hypertension Social History Social History (System 08/20/22 @ 07:03 by Nicole Rodriguez) Social History: the patient lives with his significant other. He has at least 1 daughter. He is a lifelong nonsmoker. Code status full code Smoking status: Never smoker Alcohol intake: current Drinks per week: 8 Substance use: never Substance use type: does not use Lack of Transportation: No Lack of Food: Never True Current Housing: I Have Housing Concerned About Future Housing: No Difficulty Paying Gas/Electric Bills: No Difficulty Paying for Meds: No Currently Unemployed: No Education: Associate Degree Difficulty w/ Childcare or Family Care: No Spiritual care concerns: No Anes - Eval Final PreProcedure Day of Procedure 08/20/22 12:08 Patient weight: obese Heart: regular rat
[2022-08-20] MEDS: ceFAZolin SODIUM 1 GM VIAL 2 GM IV PUSH (12:52)
--- NOTE | 2022-08-20 12:58 | PC.NURSE ---
Pt. to OR via stretcher at 12:00.
[2022-08-20] MEDS: LIDOCAINE HCL 2% GEL UROJET 10 ML PKG MUCOUS MEM (13:19)
--- NOTE | 2022-08-20 13:29 | P.OP_ITS ---
Procedure Note - Detailed Date of Procedure 08/20/22 Pre-op Diagnosis UreteralCalculi/Pain Control Left ureteral calculus 6 mm Post-op Diagnosis Same Procedure Performed Cystoscopy, left retrograde pyelogram, left ureteroscopy with holmium laser, stone extraction, left ureteral stent placement 4.8 British contour Surgeon Miguel Alan MD Anesthesia General Description of Procedure Patient is taken to the operative suite correctly identified. Once anesthesia was obtained was placed in dorsal lithotomy position and prepped and draped usual sterile fashion. Twenty-two British scope inserted the bladder there is no tumors noted. Left orifice was cannulated with a guidewire. Ureter was dilated with an 8/10 dilator. I then placed ureteral access sheath in. Mini flexible ureteral scope was inserted. The stone was visualized. It was too large to retrieve 1 piece. Using a 200 micron fiber we lasered the stone. The largest pieces were retrieved sent for analysis. Reinspection revealed no residual ureteral stones. Pyelogram was then performed to confirm placement of the stent. Left ureteral stent was then placed with the proximal end coiled in the renal pelvis and the distal end coiled in the bladder. Bladder was drained. 2% viscous lidocaine was inserted. Patient is taken recovery stable condition. Patient will follow-up in a week's time for stent removal. This completes the taken. Please send a copy this to my office Urine Output 0 Drains Yes Packing No Pathology Yes Complications No immediate complications Condition Stable Disposition PACU
--- NOTE | 2022-08-20 14:28 | PC.NURSE ---
Patient back to room via stretcher.
--- NOTE | 2022-08-20 15:58 | PM.DS ---
DS: Admitting Diagnosis Discharge Date 08/20/2022 Admitting Diagnosis L ureteral stone DS: Discharge Diagnosis Discharge Diagnosis (1) Calculus of left ureter: Code(s): N20.1 - Calculus of ureter Status: Acute Assessment and Plan: Patient found to have 6 mm proximal left ureteral stone Seen in consultation by Urology Underwent cystoscopy, left retrograde pyelogram, left ureteroscopy with holmium laser, stone extraction, and left ureteral stent placement He will follow-up with urology as an outpatient in 1 week for stent removal Supportive care provided inpatient with symptomatic improvement (2) Abnormal urinalysis: Code(s): R82.90 - Unspecified abnormal findings in urine Status: Acute Assessment and Plan: UA slightly abnormal with 1+ leuk esterase and 11-20 WBC Patient asymptomatic Holding on antibiotics while awaiting urine culture results. Final cultures will be monitored following discharge (3) Pulmonary nodule: Code(s): R91.1 - Solitary pulmonary nodule Status: Acute Assessment and Plan: CT of the abdomen/pelvis demonstrated 9 mm pulmonary nodule which may be granulomatous disease or primary bronchogenic carcinoma Patient does have smoking history, quit smoking cigarettes in 2016 (smoked 1 pack every 2-3 days) and then transitioned to vaping which he quit 1 month ago Patient has been referred to the on-call primary care provider with whom he will establish care and then will continue with surveillance, of three-month noncontrast low-dose chest CT has been recommended for monitoring Patient aware of these results and aware of need for follow-up DS: Summary Hospital Course Hospital Course: Date of admission: 08/19/2022 Date of discharge: 08/20/2022 Daniel Odonnell is a 37-year-old male former smoker with no prior medical history who presented to the emergency department on 08/19/2022 with left flank plain. On presentation, his vital signs were stable, he was afebrile, laboratory workup unremarkable, CT of the abdomen/pelvis showed 6 mm stone in the proximal left ureter with 9 mm pulmonary nodule. He was admitted to the hospitalist service for further evaluation and management was seen in consultation by Urology. Please see above for further details. Patient underwent stone extraction and stent placement with symptomatic improvement. He will follow-up with urology in 1 week. Patient was feeling improved and felt comfortable with plans for discharge home. He was discharged in hemodynamically stable condition on 08/20/2022. Instructed on importance of outpatient follow-up and establishing care with PCP. Time Spent with Patient Time attestation: Total time spent providing and/or coordinating discharge services: 45 minutes Time spent: Greater than 30 minutes Exam Narrative: General: Well-nourished, well-appearing 37-year-old male, sitting up in bed, comfortable, NARD Neuro: awake, alert and oriented x4, speech clear, no focal neuro deficits noted HEENMT: normocephalic, atraumatic, EOMI, sclerae anicteric Respiratory: clear to auscultation bilaterally, nonlabored breathing Cardio: regular rate, regular rhythm with S1-S2 Abdomen: nondistended, normoactive bowel sounds, soft, nontender to palpation Extremities: no edema, erythema, or tenderness to palpation Skin: no rashes or lesions, warm and dry Psych: appropriate mood and affect, judgment and insight intact DS: Data Data Completed and Pending Pending studies at discharge: Pending at discharge 08/20/22 13:21 Surgical [PTH] Routine Labs on day of discharge: Labs from last 24 hours 08/20/22 05:30 WBC 9.7 RBC 4.62 Hgb 13.2 L Hct 40.8 L MCV 88.3 MCH 28.6 MCHC 32.4 RDW 12.9 Plt Count 239 MPV 10.5 H Immature Gran % (Auto) 0.3 Neut % (Auto) 49.7 Lymph % (Auto) 34.8 [place] % (Auto) 12.4 H Eos % (Auto) 2.2 Baso % (Auto) 0.6 Lymph # (Auto) 3.39 H [place] # (
--- NOTE | 2022-08-21 14:20 | WPDANESPN ---
Anes - Prog Note Post-Op Date/Time: 08/21/22 14:20 Cardiovascular status: normal Respiratory status: normal Airway patency: baseline Mental status: baseline Post-Op hydration status: normal Vital Signs: Last Vital Signs Temp 96.1 F L 08/20/22 15:07 Pulse 71 08/20/22 15:07 Resp 18 08/20/22 15:07 BP 141/85 H 08/20/22 15:07 Pulse Ox 97 08/20/22 15:07 O2 Del Method Room Air 08/20/22 14:15 O2 Flow Rate 8 08/20/22 13:45 Pain Score (VAS): 0/10 Laboratory Tests 08/20/22 05:30 08/20/22 05:30 Microbiology 08/19/22 10:48 Unspecified Urine Urine Culture - Final Post-procedural complaints: none Patient Feedback: Patient satisfied with anesthetic care.
== END 2022-08-20 16:20 | disposition home or self-care (01) ==
LOC: ANHED 13:17 → ANH3MEDSUR 14:40
PROVIDERS: Nurse Practitioner; Urology; Admitting Provider Family Medicine; Emergency Provider Emergency Medicine; Visit Provider Physician Assistant
PROC: (CPT 52352; principal; 2022-08-20 12:45)
DX: N13.2 Hydronephrosis with renal and ureteral calculous obstruction (principal); R82.90 Unspecified abnormal findings in urine; R91.1 Solitary pulmonary nodule; K42.9 Umbilical hernia without obstruction or gangrene; E66.9 Obesity, unspecified; Z68.30 Body mass index [BMI] 30.0-30.9, adult; F10.90 Alcohol use, unspecified, uncomplicated; Z84.1 Family history of disorders of kidney and ureter
CPT/HCPCS: 52325; 52332; 36415; 74018; 74176; 74420; 80053; 81001; 82365; 83605; 83735; 85025; 87086; 88300; 96361; 96374; 96375; 96376; 99285; C1758; C1769; C2617; G0378; J0690; J1100; J1170; J2250; J2405; J2704; J3010; J7030; J7120

== ENCOUNTER 2022-08-22 10:53 | Emergency (ER) | payer BC, SELFPAY ==
--- NOTE | ~2022-08-22 | CT_ITS ---
Non-contrast CT scan of the Abdomen and Pelvis Clinical indication: Left flank pain, status post lithotripsy Technique: 2.5 mm axial scans were obtained through the abdomen and pelvis without intravenous or or al contrast. Dose reduction technique was used on this scan by utilizing automated exposure control a nd iterative reconstruction technique. The dose-length product (DLP) was 606.29 mGy-cm. COMPARISON: 08/19/2022 Findings: Images through the lung bases reveal stable 8 mm right lower lobe pulmonary nodule (axial image 15). Mild left hydroureteronephrosis is present. There are 1 or 2 punctate calcifications in the proximal left ureter. There are a few punctate stones the left lower renal pole. No right renal or right urete ral stone. No right hydronephrosis. The liver, spleen, pancreas, gallbladder, and adrenals appear normal. There is no aortic aneurysm. There is no evidence of bowel obstruction. Normal appendix. Images through the pelvis were performed. There is no evidence of ascites or lymphadenopathy. Tiny am ount of air present in the urinary bladder. Prostate gland and seminal vesicles are unremarkable. Impression: One or 2 punctate residual stones in the proximal left ureter. Persistent mild left hydroureteronephrosis. Stable small nonobstructing left lower pole renal stones. Stable 8 mm right lower lobe pulmonary nodule, indeterminate. Short-term follow-up CT in 3 months, or PET/CT, again advised. Reviewed, dictated and finalized at [facility]. Impression: One or 2 punctate residual stones in the proximal left ureter. Persistent mild left hydroureteronephrosis. Stable small nonobstructing left lower pole renal stones. Stable 8 mm right lower lobe pulmonary nodule, indeterminate. Short-term follow -up CT in 3 months, or PET/CT, again advised.
--- NOTE | ~2022-08-22 | XR_ITS ---
EXAMINATION: XR abdomen/kub 1V DATE: 08/22/2022 12:00 INDICATION: Left flank pain. TECHNIQUE: A supine view of the abdomen on 2 radiographs was obtained. COMPARISON: CT abdomen and pelvis 08/19/2022 FINDINGS: There are no dilated loops of bowel. There is no visible urolithiasis. IMPRESSION: 1. No visible urolithiasis. Reviewed, dictated and finalized at location A. IMPRESSION: 1. No visible urolithiasis.
[2022-08-22 11:12] VITALS: BP 153/106; PULSE 52; RESP 16; O2SAT 98
--- NOTE | 2022-08-22 11:28 | ED.MALEGU ---
HPI - Male Genitourinary General Chief complaint: Urogenital-Male Stated complaint: kidney stone pain/sp stent removal Time Seen by Provider: 08/22/22 11:19 History of Present Illness HPI Narrative: Patient is a 37-year-old male here for evaluation of left flank and lower abdominal pain. Patient has been experiencing this pain since he was diagnosed with a left 6 mm proximal stone. This was treated with a laser and he had a stent placed. Patient has been having continued pain since the procedure and he has also been experiencing pain with urination. The stent was removed today but since removal patient's pain has acutely worsened. He took Tylenol without relief of his symptoms. Related Data Allergies Allergy/AdvReac Type Severity Reaction Status Date / Time No Known Allergies Allergy Verified 08/22/22 13:08 Review of Systems Review of Systems: Gen.: Denies fevers or chills Eyes: Denies eye pain or visual change ENT: Denies congestion Respiratory: Denies shortness of breath or cough CV: Denies chest pain or palpitations GI: Denies abdominal pain nausea, emesis or diarrhea denies burning, urgency, frequency or hematuria Musculoskeletal: Reports left flank pain Neuro: Denies numbness, tingling, weakness or focal weakness Skin: Denies rash Except as documented, all other systems reviewed and negative [facility] Past Medical History Medical History No pertinent past medical history Surgical History Surgical History H/O neck surgery H/O shoulder surgery History of neck surgery History of shoulder surgery Family History Family History (System 08/20/22 @ 07:03 by Nicole Rodriguez) Father Kidney stone Other Hypertension Social History Social History (System 08/20/22 @ 07:03 by Nicole Rodriguez) Social History: the patient lives with his significant other. He has at least 1 daughter. He is a lifelong nonsmoker. Code status full code Smoking status: Never smoker Alcohol intake: current Drinks per week: 8 Substance use: never Substance use type: does not use Lack of Transportation: No Lack of Food: Never True Current Housing: I Have Housing Concerned About Future Housing: No Difficulty Paying Gas/Electric Bills: No Difficulty Paying for Meds: No Currently Unemployed: No Education: Associate Degree Difficulty w/ Childcare or Family Care: No Spiritual care concerns: No Exam Narrative: APPEARANCE: Uncomfortable appearing, writhing in pain Head: Normocephalic and atraumatic. EYES: PERRLA/EOMI, conjunctivae clear NOSE: No nasal drainage EARS: External ear normal in appearance THROAT: Oropharynx is clear. Mucous membranes are moist. NECK: Supple. No adenopathy, no masses. RESPIRATORY: Airway patent, respirations nonlabored. Clear to auscultation bilaterally, no rales, rhonchi, wheezing. CARDIOVASCULAR: Regular rate and rhythm without murmurs, rubs, or gallops. ABDOMINAL: Normoactive bowel sounds. Soft, nontender, nondistended. No rebound tenderness or guarding. MUSCULOSKELETAL: Extremities are warm and well-perfused. Moves all extremities well. No edema. NEURO: Normal speech. No focal neurologic deficits. SKIN: Skin is warm and dry. No rashes. PSYCHIATRIC: Normal affect/mood. Course Vital Signs Vital signs: Vital Signs Pulse Rate 52 L 08/22/22 11:12 Respiratory Rate 16 08/22/22 11:12 Blood Pressure 153/106 H 08/22/22 11:12 Pulse Oximetry 98 08/22/22 11:12 Oxygen Delivery Room Air 08/22/22 11:12 Pulse Rate 89 08/22/22 14:09 Respiratory Rate 16 08/22/22 14:09 Blood Pressure 140/76 08/22/22 14:09 Pulse Oximetry 98 08/22/22 14:09 Oxygen Delivery Room Air 08/22/22 11:12 MDM - Male Genitourinary MDM Narrative Medical decision making narrative: 37-year-old male here for evaluation of left flank
[2022-08-22] MEDS: ONDANSETRON INJ 4 MG/2 ML VIAL IV PUSH (11:32)
[2022-08-22] MEDS: HYDROmorphone HCL INJ (*CRX) 1 MG/ML SYR IV PUSH ×2 (11:33→12:21)
[2022-08-22 11:43] LABS: Basophils Absolute Auto 0.1 K/mm3 (0.0-0.1); Basophils Percent Auto 0.7 % (0.2-1.2); Eosinophils Absolute Auto 0.1 K/mm3 (0-0.3); Eosinophils Percent Auto 1.6 % (0-4.4); Hematocrit 44.3 % (42.0-52.0); Hemoglobin 14.9 g/dL (14.0-18.0); Immature Granulocyte Absolute 0.02 K/mm3 (0.00-0.031); Immature Granulocyte Percent A 0.3 % (0-0.5); Lymphocytes Percent Auto 38.6 % (18.3-44.2); Mean Corpuscular HGB Conc 33.6 g/dl (32-36); Mean Corpuscular Hemoglobin 29.3 pg (26-34); Mean Corpuscular Volume 87.2 fl (80-100); Mean Platelet Volume 10.3 fl (7.4-10.4); Monocytes Absolute Auto 0.9 K/mm3 (0.1-0.6); Monocytes Percent Auto 12.9 % (2.6-8.5); Neutrophils Absolute Auto 3.1 K/mm3 (1.3-6.7); Neutrophils Percent Auto 45.9 % (45.5-73.1); Platelet Count Result 313 k/mm3 (150-375); Red Blood Count 5.08 M/mm3 (4.6-6.20); Red Cell Distribution Width 12.6 % (11.5-14.5); White Blood Count 6.7 K/mm3 (4.5-10.0)
[2022-08-22 11:54] LABS: Alanine Aminotransferase 25 U/L (6-50); Albumin Level 4.5 g/dL (3.5-5.1); Alkaline Phosphatase 74 U/L (38-126); Anion Gap 7 mmol/L (8-16); Aspartate Amino Transferase 32 U/L (17-59); Bilirubin,Total 0.8 mg/dL (0.2-1.3); Blood Urea Nitrogen 15 mg/dL (9-20); Calcium 9.2 mg/dL (8.4-10.2); Carbon Dioxide 30 mmol/L (22-30); Chloride 102 mmol/L (98-107); Estimated CRCL calculation 107 ml/min; Estimated Glomerular Filt Rate > 60; Glucose 107 mg/dL (65-110); Potassium 3.9 mmol/L (3.4-5.0); Sodium 139 mmol/L (137-145)
[2022-08-22 12:37] LABS: Bacteria Urine None Seen /hpf; Non Pathogenic Casts 0-2; RBC Urine >100 /hpf (0-2); Squamous Epithelial Cell Urine None seen /hpf (Few); WBC Urine 51-100 /hpf
[2022-08-22 12:41] LABS: Appearance Urine Turbid (Clear); Bilirubin Urine 1+ (Negative); Blood Urine 3+ (Negative); Color Urine Orange (Yellow); Glucose Urine UA Negative (Negative); Ketones Urine Negative (Negative); Leukocyte Esterase Ur 2+ LEU/UL (Negative); Nitrate Urine Negative (Negative); Protein Urine 3+ mg/dL (Negative)
[2022-08-22 12:46] LABS: Add Urine Microscopic? YES
[2022-08-22 14:09] VITALS: BP 140/76; PULSE 89; RESP 16; O2SAT 98
== END 2022-08-22 14:11 | disposition home or self-care (01) ==
PROVIDERS: Emergency Provider Physician Assistant
DX: N13.2 Hydronephrosis with renal and ureteral calculous obstruction (principal); R91.1 Solitary pulmonary nodule
CPT/HCPCS: 36415; 74018; 74176; 80053; 81001; 85025; 87086; 96374; 96375; 96376; 99284; J1170; J2405

== ENCOUNTER → 2022-10-01 10:47 | Outpatient (CLI) | payer BC, SELFPAY ==
--- NOTE | ~2022-10-01 | MR_ITS ---
MRI of the brain Clinical History: Headache Technique: Axial and sagittal T1-weighted images were acquired. These were followed by axial T2-weigh kayla, diffusion weighted, gradient, and FLAIR images. Findings: No abnormal signal seen in the brain parenchyma. No acute infarct, intracranial hemorrhage, or mass lesion. Ventricles and subarachnoid spaces are unremarkable. Orbits are unremarkable. Paranasal sinuses and m astoid air cells are clear. Major intracranial flow voids are intact. Sagittal midline structures are intact. IMPRESSION: No significant abnormality identified. Reviewed, dictated and finalized at location M.
== END ==
PROVIDERS: PCP Family Medicine Adolescent Medicine; Visit Provider Family Medicine Adolescent Medicine
DX: R51.9 Headache, unspecified (principal)
CPT/HCPCS: 70551